=== PATIENT | female | born 1970 | race Caucasian/White ===

== ENCOUNTER 2017-02-16 18:20 | Observation (INO) | payer OTHER, BC ==
[~2017-02-16] VITALS: Ht 167.6 cm; Wt 113.6 kg
[2017-02-16 18:38] LABS: BASOPHIL COUNT 0.1 K/uL (0-0.1); EOSINOPHIL (%) 1.4 % (0-5); EOSINOPHIL COUNT 0.2 K/uL (0-0.3); HEMATOCRIT 45.3 % (36.0-46.0); IMMATURE GRANULOCYTE (%) 0.6 % (0.0-0.7); IMMATURE GRANULOCYTE COUNT 0.1 K/uL; INSTRUMENT ABS NEUTROPHIL CT 6.6 K/uL; LYMPHOCYTE COUNT 5.4 K/uL (1.0-2.8); MCH 25.2 PG (29.0-34.0); MCV 78.6 FL (83-99); MEAN PLAT.VOLUME 9.8 uM^3 (9.5-12.4); MONOCYTE COUNT 0.9 K/uL (0-0.8); NEUTROPHIL (%) 49.9 % (45-76); NEUTROPHIL COUNT 6.6 K/uL (1.8-6.4); PLATELET COUNT 389 K/uL (156-360); RBC DIS.WIDTH-CV 14.8 % (11.8-14.6); RBC DIS.WIDTH-SD 41.3 % (39-53); RED BLOOD COUNT 5.76 M/uL (3.80-5.20); WHITE BLOOD COUNT 13.2 K/uL (4.1-10.2)
[2017-02-16 18:46] LABS: AMYLASE 38 IU/L (1-118); CHLORIDE 106 mEq/L (99-109); POTASSIUM 3.7 mEq/L (3.7-5.4); SODIUM 138 mEq/L (136-147)
[2017-02-16 18:48] LABS: GLUCOSE 138 mg/dL (70-99)
[2017-02-16 18:49] LABS: ANION GAP 13 MEQ/L (2-14)
[2017-02-16 18:51] LABS: SERUM ETHYL ALCOHOL < 10 mg/dL
[2017-02-16 18:52] LABS: GFR ESTIMATE (CALCULATED) > 59 mL/min/; UREA NITROGEN (BUN) 20 mg/dL (9-23)
[2017-02-16 18:54] LABS: LIPASE 51 U/L (1.0-51.0)
[2017-02-16 19:01] LABS: QUANTITATIVE HCG < 4.0 MIU/ML
[2017-02-16] MEDS ORDERED: ZYPREXA20 MG PO (21:01)
[2017-02-16] MEDS ORDERED: METFORMIN HCL500 MG PO (21:02)
[2017-02-16] MEDS ORDERED: PAXIL30 MG PO (21:02)
[2017-02-16] MEDS ORDERED: BYDUREON P2 MG/0.65 SC (21:03)
[2017-02-16] MEDS ORDERED: PRINIVIL10 MG PO (21:03)
[2017-02-16] MEDS ORDERED: TRESIBA SC (21:03)
[2017-02-16] MEDS ORDERED: LO-DOSE ASPIRIN81 M2 PO (21:04)
[2017-02-16] MEDS ORDERED: TRICOR145 MG PO (21:04)
[2017-02-16] MEDS ORDERED: ONE-A-DAY ESSE1 EAC1 PO (21:04)
[2017-02-16 23:06] VITALS: BP 132/88
[2017-02-16 23:22] LABS: POINT-OF-CARE METER ID UU14188577
[2017-02-17] VITALS (7 sets, daily range): BP systolic 89–124; BP diastolic 54–77
[2017-02-17 05:35] LABS: HEMATOCRIT 37.1 % (36.0-46.0); MCH 25.1 PG (29.0-34.0); MEAN PLAT.VOLUME 10.3 uM^3 (9.5-12.4); PLATELET COUNT 295 K/uL (156-360); RBC DIS.WIDTH-CV 14.8 % (11.8-14.6); RBC DIS.WIDTH-SD 43.2 % (39-53); RED BLOOD COUNT 4.58 M/uL (3.80-5.20); WHITE BLOOD COUNT 10.7 K/uL (4.1-10.2)
[2017-02-17 05:57] LABS: ALKALINE PHOSPHATASE 52 IU/L (3-129); ANION GAP 9 MEQ/L (2-14); CHLORIDE 106 MEQ/L (99-109); GFR ESTIMATE (CALCULATED) > 59 mL/min/; GLUCOSE 147 mg/dL (70-99); POTASSIUM 4.3 MEQ/L (3.7-5.4); SAMPLE HEMOLYSIS CHECK 0; SAMPLE ICTERIC CHECK 0; SAMPLE LIPEMIA CHECK 0; SODIUM 139 MEQ/L (136-147); TOTAL BILIRUBIN 0.3 MG/DL (0.0-1.0); UREA NITROGEN (BUN) 17 mg/dL (9-23)
[2017-02-17 06:22] LABS: TROP-I INTERPRETATION POSITIVE; TROPONIN-I 1.58 ng/mL (0.0-0.30)
[2017-02-17 06:34] LABS: POINT-OF-CARE METER ID UU14188577
[2017-02-17] MEDS ORDERED: PERCOCET 5/31 TABLET PO (08:30)
[2017-02-17 12:35] LABS: TROP-I INTERPRETATION POSITIVE; TROPONIN-I 1.06 ng/mL (0.0-0.30)
[2017-02-17 12:46] LABS: POINT-OF-CARE METER ID UU14149397
[2017-02-17 16:57] LABS: POINT-OF-CARE METER ID UU14149397
[2017-02-17 19:44] LABS: TROP-I INTERPRETATION INDETERMINATE; TROPONIN-I 0.56 ng/mL (0.0-0.30)
[2017-02-18 04:22] VITALS: BP 125/62
[2017-02-18 06:44] LABS: POINT-OF-CARE METER ID UU14188577
[2017-02-18 08:19] VITALS: BP 125/65
[2017-02-18 11:42] VITALS: BP 132/69
[2017-02-18 11:50] LABS: POINT-OF-CARE METER ID UU14149397
== END 2017-02-18 13:37 | disposition home or self-care (01) ==
LOC: TRA 18:20 → EDOF 21:13 → 3EAST 21:13 → EDOF 21:13 → 3EAST 22:47
PROVIDERS: Emergency Medicine; Internal Medicine; Surgery
DX: S22.23XA Sternal manubrial dissociation, initial encounter for closed fracture (principal); S22.41XA Multiple fractures of ribs, right side, initial encounter for closed fracture; S92.422A Displaced fracture of distal phalanx of left great toe, initial encounter for closed fracture; S92.535A Nondisplaced fracture of distal phalanx of left lesser toe(s), initial encounter for closed fracture; V89.2XXA Person injured in unspecified motor-vehicle accident, traffic, initial encounter; W22.12XA Striking against or struck by front passenger side automobile airbag, initial encounter; Y92.410 Unspecified street and highway as the place of occurrence of the external cause; S30.1XXA Contusion of abdominal wall, initial encounter; S20.01XA Contusion of right breast, initial encounter; E66.9 Obesity, unspecified; Z68.41 Body mass index [BMI] 40.0-44.9, adult; E11.9 Type 2 diabetes mellitus without complications; I10 Essential (primary) hypertension; E78.5 Hyperlipidemia, unspecified
CPT/HCPCS: 71260; 72125; 73130; 73630; 74177; 80048; 80053; 81003; 82150; 82948; 83690; 84484; 84702; 85025; 85027; 86900; 86901; 93005; 93306; 99281; 99285; G0378; G0480; J1644; J2270; J2405; J7030